=== PATIENT | male | born 1965 | race Caucasian/White ===

== ENCOUNTER 2019-09-09 15:57 | Emergency (ER) | payer OTHER, SELFPAY ==
[2019-09-09 16:02] VITALS: BP 170/108; PULSE 79; RESP 18; TEMP 37; O2SAT 98; BMI 24.3
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
--- NOTE | 2019-09-09 16:05 | XR_ITS ---
WS: [id number] SHOULDER RIGHT TECHNIQUE: 3 views of the right shoulder CLINICAL INFORMATION: injury COMPARISON: None. FINDINGS: Widening of the AC joint consistent with ligamentous injury. Distal clavicle appears normal. Normal h umerus and glenoid. No acute fractures. XR/XR shoulder RT min 2V* [id number] IMPRESSION: Widening of the AC joint consistent with ligamentous injury. No acute fractures .
[2019-09-09] MEDS: HYDROcodone-acetaminophen 7.5-325 mg Tablet 1 TAB PO (16:17)
[2019-09-09 16:20] VITALS: PULSE 100
[2019-09-09 17:01] VITALS: BP 151/94; PULSE 94; RESP 18; TEMP 36.8; O2SAT 96
--- NOTE | 2019-09-12 14:03 | DCPLANNER ---
java manager had message to schedule a follow up appointment for patient with ortho. java manager called the ortho clinic, spoke with Pat, gave clinic patients information, was told that patients information would be printed and reviewed. Clinic will call employment case manager and patient with appointment information.
== END 2019-09-09 17:02 | disposition home or self-care (01) ==
LOC: ER 17:08
PROVIDERS: Emergency Provider Emergency Medicine
DX: S43.004A Unspecified dislocation of right shoulder joint, initial encounter (principal); W19.XXXA Unspecified fall, initial encounter; Y92.828 Other wilderness area as the place of occurrence of the external cause
CPT/HCPCS: 23650; 73030; 99281; 99283